=== PATIENT | male | born 1975 | race Caucasian/White ===

== ENCOUNTER 2020-03-30 16:26 | Emergency (ER) | payer BC, MEDICAID ==
[2020-03-30 16:42] VITALS: BP 132/77; PULSE 80
[2020-03-30] MEDS ORDERED: Lactated Ringers 1,000 ML IV ONE (16:43)
--- NOTE | 2020-03-30 16:56 | EDM.PDOC ---
ED HPI GENERAL MEDICAL PROBLEM - General Chief Complaint: Gastrointestinal Problem Stated Complaint: DIZZY/NAUSEA Time Seen by Provider: 03/30/20 16:56 Source of Information: Reports: Patient, RN, RN Notes Reviewed History Limitations: Reports: No Limitations - History of Present Illness INITIAL COMMENTS - FREE TEXT/NARRATIVE: Patient presents to ER with complaint of bilateral shoulder pain, weakness, lethargy, nausea and vomiting. Patient states he was at work this morning and approximately 9:00 he began feeling as if he was overheated, very weak and lethargic. Patient did vomit twice this morning. Went home from work and has been resting since then. Patient states he feels he is possibly dehydrated. States he continued to have the bilateral shoulder pain while at home trying to rest. Patient states the shoulder pain has improved since he has been in the ER. Denies any pain at this time. Patient states nausea has also improved. Patient states he never did have any chest pains. Denies any health history, or taking any medications on a regular basis. Onset: Today, Sudden Bilateral Shoulder Pain Score (Numeric/FACES): 6 - Related Data Allergies Allergy/AdvReac Type Severity Reaction Status Date / Time No Known Allergies Allergy Verified 03/30/20 16:36 Home Meds: Home Meds . [No Known Home Meds] 10/19/16 [History] Past Medical History - Past Health History Medical/Surgical History: Denies Medical/Surgical History - Infectious Disease History Infectious Disease History: Reports: None - Past Surgical History Musculoskeletal Surgical History: Reports: Other (See Below) Social & Family History - Family History Family Medical History: Noncontributory - Caffeine Use Caffeine Use: Reports: Coffee ED ROS GENERAL - Review of Systems Review Of Systems: Comprehensive ROS is negative, except as noted in HPI. ED EXAM, GENERAL - Physical Exam Exam: See Below Exam Limited By: No Limitations General Appearance: Alert, WD/WN, No Apparent Distress Eye Exam: Bilateral Eye: EOMI, Normal Inspection Ears: Normal External Exam, Hearing Grossly Normal Nose: Normal Inspection Throat/Mouth: Normal Inspection, Normal Voice, No Airway Compromise Head: Atraumatic, Normocephalic Neck: Normal Inspection, Supple, Non-Tender, Full Range of Motion Respiratory/Chest: No Respiratory Distress, Lungs Clear, Normal Breath Sounds, No Accessory Muscle Use, Chest Non-Tender Cardiovascular: Normal Peripheral Pulses, Regular Rate, Rhythm, No Edema, No Gallop, No JVD, No Murmur, No Rub Peripheral Pulses: 2+: Radial (L), Radial (R) GI/Abdominal: Normal Bowel Sounds, Soft, Non-Tender (Male) Exam: Deferred Rectal (Males) Exam: Deferred Back Exam: Normal Inspection, Full Range of Motion, NT Extremities: Normal Inspection, Normal Range of Motion, No Pedal Edema, Normal Capillary Refill, Other (bilateral shoulder pain, radiates to back/shoulder blades) Neurological: Alert, Oriented, CN II-XII Intact, Normal Cognition, Normal Gait, Normal Reflexes, No Motor/Sensory Deficits Psychiatric: Normal Affect, Normal Mood Skin Exam: Warm, Dry, Intact, Normal Color, No Rash Lymphatic: No Adenopathy Course - Vital Signs Last Recorded V/S: Last Vital Signs Temp 96.8 F L 03/30/20 16:40 Pulse 80 03/30/20 16:40 Resp 18 03/30/20 16:40 BP 132/77 03/30/20 16:40 Pulse Ox 97 03/30/20 16:40 - Orders/Labs/Meds Orders: Active Orders 24 hr Category Date Time Status EKG Documentation Completion [RC] STAT Care 03/30/20 16:42 Active Heparin Sodium/0.45% NaCl [Heparin 25,000 Units in 1/2 Med 03/30/20 17:45 Active NS 500 ML] 25,000 units in 500 ml IV TITRATE Medication Orders Heparin Sodium/Sodium Chloride (Heparin 25,000 Units In 1/2 Ns 500 Ml) 25,000 units in 500 mls @ 14.065 mls/hr IV TITRATE SHERRI; Protocol Labs: Laboratory Tests 03/30/20 03/30/20 03/30/20 Range/Units 16:43 16:43 16:43 WBC 15.8 H (5.0-10.0) 10^3/uL RBC 4.92 (4.6-6.2) 10^6/uL Hgb 15.2 (14.0-18.0) g/dL Hct 43.7 (40.0-54.0) % MCV 88.8 (80-100) fL MCH 30.9 (27.0-34.0) pg MCHC 34.8 (33.0-35.0) g/dL Plt Count 238 (150-450) 10^3/uL Neut % (Auto) 83.5 H (42.2-75.2) % Lymph % (Auto) 10.9 L (20.5-50.1) % [place] % (Auto) 5.2 (2-8) % Eos % (Auto) 0.1 L (1.0-3.0) % Baso % (Auto) 0.3 (0.0-1.0) % PT (9.0-12.0) SEC INR (0.9-1.2) Sodium 139 (136-145) mmol/L Potassium 3.9 (3.5-5.1) mmol/L Chloride 101 (98-107) mmol/L Carbon Dioxide 27 (21-32) mmol/L Anion Gap 14.9 H (7-13) mEq/L BUN 6 L (7-18) mg/dL Creatinine 0.83 (0.70-1.30) mg/dL Est Cr Clr Drug Dosing 92.18 mL/min Estimated GFR (MDRD) > 60 BUN/Creatinine Ratio 7.2 (No establ ref range) Glucose 114 H (74-99) mg/dL Calcium 9.3 (8.5-10.1) mg/dL Total Bilirubin 0.6 (0.2-1.0) mg/dL AST 45 H (15-37) U/L ALT 26 (16-63) U/L Alkaline Phosphatase 79 (46-116) U/L Troponin I 2.978 H* (0.000-0.056) ng/mL Total Protein 7.1 (6.4-8.2) g/dL Albumin 4.3 (3.4-5.0) g/dL Globulin 2.8 Albumin/Globulin Ratio 1.5 Amylase 41 (25-115) U/L Lipase 153 (73-393) U/L /24/20 Range/Units 16:43 WBC (5.0-10.0) 10^3/uL RBC (4.6-6.2) 10^6/uL Hgb (14.0-18.0) g/dL Hct (40.0-54.0) % MCV (80-100) fL MCH (27.0-34.0) pg MCHC (33.0-35.0) g/dL Plt Count (150-450) 10^3/uL Neut % (Auto) (42.2-75.2) % Lymph % (Auto) (20.5-50.1) % [place] % (Auto) (2-8) % Eos % (Auto) (1.0-3.0) % Baso % (Auto) (0.0-1.0) % PT 10.8 (9.0-12.0) SEC INR 1.1 (0.9-1.2) Sodium (136-145) mmol/L Potassium (3.5-5.1) mmol/L Chloride (98-107) mmol/L Carbon Dioxide (21-32) mmol/L Anion Gap (7-13) mEq/L BUN (7-18) mg/dL Creatinine (0.70-1.30) mg/dL Est Cr Clr Drug Dosing mL/min Estimated GFR (MDRD) BUN/Creatinine Ratio (No establ ref range) Glucose (74-99) mg/dL Calcium (8.5-10.1) mg/dL Total Bilirubin (0.2-1.0) mg/dL AST (15-37) U/L ALT (16-63) U/L Alkaline Phosphatase (46-116) U/L Troponin I (0.000-0.056) ng/mL Total Protein (6.4-8.2) g/dL Albumin (3.4-5.0) g/dL Globulin Albumin/Globulin Ratio Amylase (25-115) U/L Lipase (73-393) U/L Meds: Medications Generic Name Dose Route Start Last Admin Trade Name Misbah PRN Reason Stop Dose Admin Heparin Sodium/Sodium Chloride 25,000 units in 500 mls @ 14.065 mls/hr 03/30/20 17:45 Heparin 25,000 Units In 1/2 Ns 500 Ml IV TITRATE SHERRI Protocol 12 UNITS/KG/HR Discontinued Medications Generic Name Dose Route Start Last Admin Trade Name Misbah PRN Reason Stop Dose Admin Aspirin 324 mg 03/30/20 17:36 03/30/20 17:45 Aspirin PO 03/30/20 17:37 324 mg ONETIME ONE Administration Heparin Sodium (Porcine) 4,000 units 03/30/20 17:34 03/30/20 17:50 Heparin Sodium IVPUSH 03/30/20 17:35 4,000 units .BOLUS ONE Administration Lactated Ringer's 1,000 mls @ 999 mls/hr 03/30/20 16:43 03/30/20 16:48 Ringers, Lactated IV 03/30/20 17:43 999 mls/hr .BOLUS ONE Administration Tenecteplase Confirm 03/30/20 17:59 03/30/20 18:01 Tnkase Administered 03/30/20 18:00 50 mg Dose Administration 50 mg .ROUTE .STK-MED ONE Tenecteplase 50 mg 03/30/20 18:08 Tnkase IV 03/30/20 18:09 ONETIME ONE Protocol - Re-Assessments/Exams Free Text/Narrative Re-Assessment/Exam: 03/30/20 18:20 Patient case discussed with Dr. Lundberg who states he would like TnKase given and the patient to be transferred to [facility] in [place]. Departure - Departure Time of Disposition: 18:22 Disposition: DC/Tfer to Acute Hospital 02 Reason for Transfer *Q: Other Condition: Serious Clinical Impression: STEMI (ST elevation myocardial infarction) Qualifiers: Involved coronary artery: other inferior wall coronary artery Qualified Code(s): I21.19 - ST elevation (STEMI) myocardial infarction involving other coronary artery of inferior wall Referrals: PCP,Unobtain [Primary Care Provider] - Forms: ED Department Discharge, Interfacility Transfer [facility] Sepsis Event Note (ED) - Evaluation Sepsis Screening Result: No Definite Risk - Focused Exam Vital Signs: Vital Signs Temp Pulse Resp BP Pulse Ox 03/30/20 16:40 96.8 F L 80 18 132/77 97 - My Orders Last 24 Hours: My Active Orders 03/30/20 16:42 EKG Documentation Completion [RC] STAT 03/30/20 17:45 Heparin Sodium/0.45% NaCl [Heparin 25,000 Units in 1/2 NS 500 ML] 25,000 units in 500 ml IV TITRATE - Assessment/Plan Last 24 Hours: My Active Orders 03/30/20 16:42 EKG Documentation Completion [RC] STAT 03/30/20 17:45 Heparin Sodium/0.45% NaCl [Heparin 25,000 Units in 1/2 NS 500 ML] 25,000 units in 500 ml IV TITRATE
--- NOTE | 2020-03-30 17:00 | CR ---
PROCEDURE INFORMATION: Exam: XR Chest, 1 View Exam date and time: 03/30/2020 4:53 PM Age: 44 years old Clinical indication: Other: Chest pain TECHNIQUE: Imaging protocol: XR of the chest Views: 1 view. COMPARISON: No relevant prior studies available. FINDINGS: Lungs: Unremarkable. No consolidation. Pleural space: Unremarkable. No pleural effusion. No pneumothorax. Heart/Mediastinum: Unremarkable. No cardiomegaly. Bones/joints: Unremarkable. IMPRESSION: No acute findings.
[2020-03-30 17:20] LABS: ANION GAP 14.9 mEq/L (7-13); CHLORIDE,CL 101 mmol/L (98-107); SODIUM,NA 139 mmol/L (136-145)
[2020-03-30] MEDS ORDERED: Heparin Sodium 5,000 Units/ML Vial IVPUSH ONE (17:34)
[2020-03-30] MEDS ORDERED: Aspirin 81 MG Tab.Chew PO ONE (17:36)
[2020-03-30] MEDS ORDERED: Heparin Sodium/0.45% NaCl 25,000 UNITS/500 ML BAG IV SCH (17:45)
[2020-03-30] MEDS ORDERED: Tenecteplase 50 MG Kit ONE (17:59)
[2020-03-30] MEDS ORDERED: Tenecteplase 50 MG Kit IV ONE (18:08)
== END 2020-03-30 18:10 ==
LOC: DL.ED 16:26
DX: I21.19 ST elevation (STEMI) myocardial infarction involving other coronary artery of inferior wall (principal)
CPT/HCPCS: 36415; 71045; 80053; 82150; 83690; 84484; 85025; 85610; 93005; 96361; 96374; 96375; 96376; 99285; A9270; J1644; J3101; J7120; 99284

== ENCOUNTER 2021-02-03 09:17 | Emergency (ER) | payer BC ==
[2021-02-03 09:34] VITALS: BP 146/91; PULSE 85
--- NOTE | 2021-02-03 09:54 | EDM.PDOC ---
"ED HPI GENERAL MEDICAL PROBLEM - General Chief Complaint: General Stated Complaint: [id number] SPITTING UP BLOOD PAST FEW DAYS Time Seen by Provider: 02/03/21 09:53 Source of Information: Reports: Patient, Old Records, RN, RN Notes Reviewed History Limitations: Reports: No Limitations - History of Present Illness INITIAL COMMENTS - FREE TEXT/NARRATIVE: Pt presents to ER from home by POV with c/o 3 days duration of hemoptysis. Pt denies shortness of breath, wheezing, chest pain, sore throat, sinus pain/drainage, or epistaxis. Admits to a mild cough. Pt is a smoker of about 1PPD since his teenage years. Denies any significant unexplained wt loss. Onset: Gradual Duration: Day(s): (3) Location: Reports: Chest Quality: Reports: Other (Denies pain) Severity: Mild Improves with: Reports: None Worsens with: Reports: Other (Coughing) - Related Data Allergies Allergy/AdvReac Type Severity Reaction Status Date / Time No Known Allergies Allergy Verified 02/03/21 09:34 Home Meds: Home Meds Aspirin [Aspirin EC] 81 mg PO DAILY 04/25/20 [History] Clopidogrel Bisulfate [Plavix] 75 mg PO DAILY 04/25/20 [History] Metoprolol Tartrate 37.5 mg PO BID 04/25/20 [History] Nitroglycerin 0.4 mg SL ASDIRECTED 04/25/20 [History] atorvaSTATin [Lipitor] 80 mg PO BEDTIME 04/25/20 [History] Past Medical History - Past Health History Medical/Surgical History: Denies Medical/Surgical History HEENT History: Reports: Impaired Vision Other HEENT History: Wears glasses Cardiovascular History: Reports: CAD, Congenital Septal Defect, Heart Failure, [place], PTCA, Stents Respiratory History: Reports: None Gastrointestinal History: Reports: None Genitourinary History: Reports: None Musculoskeletal History: Reports: None Neurological History: Reports: None Psychiatric History: Reports: None Endocrine/Metabolic History: Reports: None Hematologic History: Reports: None Immunologic History: Reports: None Oncologic (Cancer) History: Reports: None Dermatologic History: Reports: None - Infectious Disease History Infectious Disease History: Reports: None - Past Surgical History Head Surgeries/Procedures: Reports: None Cardiovascular Surgical History: Reports: Coronary Artery Stent, Other (See Below) (PDA repair) Musculoskeletal Surgical History: Reports: Other (See Below) Other Musculoskeletal Surgeries/Procedures:: Left partial medial meniscectomy/shaving of articular cartilage Social & Family History - Family History Family Medical History: No Pertinent Family History - Tobacco Use Tobacco Use Status *Q: Current Every Day Tobacco User Tobacco Use Within Last Twelve Months: Cigarettes Years of Tobacco use: 31 Packs/Tins Daily: 0.5 Second Hand Smoke Exposure: No - Caffeine Use Caffeine Use: Reports: Coffee - Recreational Drug Use Recreational Drug Type: Reports: Marijuana/Hashish - Living Situation & Occupation Living situation: Reports: with Family ED ROS GENERAL - Review of Systems Review Of Systems: Comprehensive ROS is negative, except as noted in HPI. ED EXAM, GENERAL - Physical Exam Exam: See Below Exam Limited By: No Limitations General Appearance: Alert, WD/WN, No Apparent Distress Nose: Normal Inspection, Normal Mucosa, No Blood Throat/Mouth: Normal Lips, Normal Oropharynx, Normal Voice, No Airway Compromise Head: Atraumatic, Normocephalic Neck: Normal Inspection, Non-Tender, Full Range of Motion. No: Lymphadenopathy (L), Lymphadenopathy (R) Respiratory/Chest: No Respiratory Distress, Lungs Clear, Normal Breath Sounds, No Accessory Muscle Use, Chest Non-Tender. No: Crackles, Rales, Rhonchi, Wheezing Cardiovascular: Regular Rate, Rhythm, No Edema GI/Abdominal: Normal Bowel Sounds, Soft, Non-Tender, No Organomegaly, No Mass Back Exam: Normal Inspection Extremities: Normal Inspection, Normal Range of Motion, Non-Tender, Normal Capillary Refill, No Pedal Edema Neurological: Alert, Oriented, CN II-XII Intact, Normal Cognition, Normal Gait, No Motor/Sensory Deficits Psychiatric: Normal Mood Skin Exam: Warm, Dry, Intact, Normal Color, No Rash. No: Ecchymosis, Jaundice, Petechiae Course - Vital Signs Last Recorded V/S: Last Vital Signs Temp 97.7 F 02/03/21 09:29 Pulse 85 02/03/21 09:29 Resp 16 02/03/21 09:29 BP 146/91 H 02/03/21 09:29 Pulse Ox 99 02/03/21 09:29 - Orders/Labs/Meds Orders: Active Orders 24 hr Category Date Time Status Peripheral IV Care [RC] . DIRECTED Care 02/03/21 10:10 Active Sodium Chloride 0.9% [Saline Flush] Med 02/03/21 10:10 Active 10 ml FLUSH ASDIRECTED PRN Peripheral IV Insertion Pediatric [OM.PC] Stat Oth 02/03/21 10:10 Ordered Medication Orders Sodium Chloride (Sodium Chloride 0.9% 10 Ml Syringe) 10 ml FLUSH ASDIRECTED PRN PRN Reason: Keep Vein Open Last Admin: 02/03/21 10:46 Dose: 10 ml Documented by: IMANI Labs: Laboratory Tests 02/03/21 02/03/21 02/03/21 Range/Units 09:53 09:53 09:53 WBC 8.4 (5.0-10.0) 10^3/uL RBC 5.22 (4.6-6.2) 10^6/uL Hgb 15.5 (14.0-18.0) g/dL Hct 46.4 (40.0-54.0) % MCV 88.9 (80-100) fL MCH 29.7 (27.0-34.0) pg MCHC 33.4 (33.0-35.0) g/dL Plt Count 270 (150-450) 10^3/uL Neut % (Auto) 53.2 (42.2-75.2) % Lymph % (Auto) 33.8 (20.5-50.1) % [place] % (Auto) 9.3 H (2-8) % Eos % (Auto) 2.9 (1.0-3.0) % Baso % (Auto) 0.8 (0.0-1.0) % PT (9.0-12.0) SEC INR (0.9-1.2) APTT (22.0-34.0) SEC D-Dimer, Quantitative < 100 (0-400) ng/mL Sodium 142 (136-145) mmol/L Potassium 4.4 (3.5-5.1) mmol/L Chloride 102 (98-107) mmol/L Carbon Dioxide 29 (21-32) mmol/L Anion Gap 15.4 H (7-13) mEq/L BUN 7 (7-18) mg/dL Creatinine 0.80 (0.70-1.30) mg/dL Est Cr Clr Drug Dosing 93.16 mL/min Estimated GFR (MDRD) > 60 BUN/Creatinine Ratio 8.8 (No establ ref range) Glucose 90 (70-99) mg/dL Calcium 9.0 (8.5-10.1) mg/dL Total Bilirubin 0.5 (0.2-1.0) mg/dL AST 13 L (15-37) U/L ALT 24 (16-63) U/L Alkaline Phosphatase 116 (46-116) U/L Lactate Dehydrogenase 145 (85-227) U/L Total Protein 7.4 (6.4-8.2) g/dL Albumin 4.0 (3.4-5.0) g/dL Globulin 3.4 Albumin/Globulin Ratio 1.2 02/03/21 Range/Units 09:53 WBC (5.0-10.0) 10^3/uL RBC (4.6-6.2) 10^6/uL Hgb (14.0-18.0) g/dL Hct (40.0-54.0) % MCV (80-100) fL MCH (27.0-34.0) pg MCHC (33.0-35.0) g/dL Plt Count (150-450) 10^3/uL Neut % (Auto) (42.2-75.2) % Lymph % (Auto) (20.5-50.1) % [place] % (Auto) (2-8) % Eos % (Auto) (1.0-3.0) % Baso % (Auto) (0.0-1.0) % PT 11.8 (9.0-12.0) SEC INR 1.2 (0.9-1.2) APTT 25.3 (22.0-34.0) SEC D-Dimer, Quantitative (0-400) ng/mL Sodium (136-145) mmol/L Potassium (3.5-5.1) mmol/L Chloride (98-107) mmol/L Carbon Dioxide (21-32) mmol/L Anion Gap (7-13) mEq/L BUN (7-18) mg/dL Creatinine (0.70-1.30) mg/dL Est Cr Clr Drug Dosing mL/min Estimated GFR (MDRD) BUN/Creatinine Ratio (No establ ref range) Glucose (70-99) mg/dL Calcium (8.5-10.1) mg/dL Total Bilirubin (0.2-1.0) mg/dL AST (15-37) U/L ALT (16-63) U/L Alkaline Phosphatase (46-116) U/L Lactate Dehydrogenase (85-227) U/L Total Protein (6.4-8.2) g/dL Albumin (3.4-5.0) g/dL Globulin Albumin/Globulin Ratio Meds: Medications Generic Name Dose Route Start Last Admin Trade Name Freq PRN Reason Stop Dose Admin Sodium Chloride 10 ml 02/03/21 10:10 02/03/21 10:46 Sodium Chloride 0.9% 10 Ml Syringe FLUSH 10 ml ASDIRECTED PRN Administration Keep Vein Open Discontinued Medications Generic Name Dose Route Start Last Admin Trade Name Freq PRN Reason Stop Dose Admin Iopamidol 100 ml 02/03/21 10:44 Iopamidol 612 Mg/Ml 100 Ml Bottle IVPUSH 02/03/21 10:45 ONETIME ONE - Radiology Interpretation Free Text/Narrative:: [facility] Final Radiology Report Call: [phone] assistance Online chat: [email or web address] Name: NESSA JOYCE Age: 45Years M Date: 02/03/2021 SSN: -- : [id number] Study: CT CHEST W CONT Requesting Physician: SAVITA ROMANO Images: [id number] Addl Studies: Provided 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 Radiation optimization: All CT scans at this facility use at least one of these dose optimization techniques: automated exposure control; mA and/or kV adjustment per patient size (includes targeted exams where dose is matched to clinical indication); or iterative reconstruction. Contrast material: ISOVUE 300; Contrast volume: 75 ml; Contrast route: INTRAVENOUS (IV); COMPARISON: No relevant prior studies available. FINDINGS: Lungs: Changes of emphysema. Patchy diffuse areas subtle ground-glass attenuation throughout both lungs in the pattern suggestive respiratory bronchiolitis. Pleural spaces: Unremarkable. No pneumothorax. No pleural effusion. Heart: Atrial appendage closure device. Vascular calcifications including coronary artery calcifications.. No cardiomegaly. No pericardial effusion. Aorta: Unremarkable. No aortic aneurysm. Lymph nodes: Unremarkable. No enlarged lymph nodes. Bones/joints: Sternotomy. Degenerative arthritis in the spine minimal osteophyte formation. The bones are demineralized and there is mild anterior wedging of couple of midthoracic vertebral bodies. No worrisome bone lesions. No acute fracture. Soft tissues: Unremarkable. NESSA JOYCE | Final Radiology Report CONFIDENTIALITY STATEMENT This report is intended only for use by the referring physician, and only in accordance with law. If you received this in error, call [phone]. Page 2 of 2 IMPRESSION: Changes of emphysema and findings suggesting respiratory bronchiolitis. No consolidation or mass. Thank you for allowing us to participate in the care of your patient. Dictated and Authenticated by: Amira Chance MD 02/03/2021 11:49 AM Central Time ([place] & [place]) - Re-Assessments/Exams Free Text/Narrative Re-Assessment/Exam: 02/03/21 12:05 Pt hemodynamically stable, not anemic, no chest pain, minimal cough, afebrile, and small amounts of blood with hemoptysis. Contrast Chest CT shows no mass or other lesions. Pt is a smoker and likely needs a bronchoscopy. However, he is stable and can have further evaluation as an outpatient in the coming week. I will d/c pt home today with instructions to return to the ER if he has increased hemoptysis, or if any new or concerning symptoms develop. I asked him to f/u in clinic Thursday (Thursday is a holiday) for recheck and referral to pulmonology. Departure - Departure Time of Disposition: 12:09 Disposition: Home, Self-Care 01 Condition: Good, Undetermined Clinical Impression: Hemoptysis - Discharge Information *PRESCRIPTION DRUG MONITORING PROGRAM REVIEWED*: Not Applicable *COPY OF PRESCRIPTION DRUG MONITORING REPORT IN PATIENT NINA: Not Applicable Instructions: Hemoptysis, [id number] Forms: ED Department Discharge Additional Instructions: Follow up at [facility] February 05 for ER recheck and referral to pulmonology for further evaluation and bronchoscopy if needed. Return to ER if worse at any time, or if any new or concerning symptoms develop. Sepsis Event Note (ED) - Evaluation Sepsis Screening Result: No Definite Risk - Focused Exam Vital Signs: Vital Signs Temp Pulse Resp BP Pulse Ox 02/03/21 09:29 97.7 F 85 16 146/91 H 99 - My Orders Last 24 Hours: My Active Orders 02/03/21 10:10 Peripheral IV Care [RC] . DIRECTED Sodium Chloride 0.9% [Saline Flush] 10 ml FLUSH ASDIRECTED PRN Peripheral IV Insertion Pediatric [OM.PC] Stat - Assessment/Plan Last 24 Hours: My Active Orders 02/03/21 10:10 Peripheral IV Care [RC] . DIRECTED Sodium Chloride 0.9% [Saline Flush] 10 ml FLUSH ASDIRECTED PRN Peripheral IV Insertion Pediatric [OM.PC] Stat"
[2021-02-03] MEDS ORDERED: Sodium Chloride 0.9% 10 ML Syringe FLUSH PRN (10:10)
[2021-02-03 10:37] LABS: ANION GAP 15.4 mEq/L (7-13); CHLORIDE,CL 102 mmol/L (98-107); SODIUM,NA 142 mmol/L (136-145)
[2021-02-03 10:38] LABS: PTT,PARTIAL THROMBOPLSTIN TIME 25.3 SEC (22.0-34.0)
[2021-02-03] MEDS ORDERED: Iopamidol 612 MG/ML 100 ML Bottle IVPUSH ONE (10:44)
--- NOTE | 2021-02-03 11:49 | CT ---
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 Radiation optimization: All CT scans at this facility use at least one of these dose optimization techniques: automated exposure control; mA and/or kV adjustment per patient size (includes targeted exams where dose is matched to clinical indication); or iterative reconstruction. Contrast material: ISOVUE 300; Contrast volume: 75 ml; Contrast route: INTRAVENOUS (IV); COMPARISON: No relevant prior studies available. FINDINGS: Lungs: Changes of emphysema. Patchy diffuse areas subtle ground-glass attenuation throughout both lungs in the pattern suggestive respiratory bronchiolitis. Pleural spaces: Unremarkable. No pneumothorax. No pleural effusion. Heart: Atrial appendage closure device. Vascular calcifications including coronary artery calcifications.. No cardiomegaly. No pericardial effusion. Aorta: Unremarkable. No aortic aneurysm. Lymph nodes: Unremarkable. No enlarged lymph nodes. Bones/joints: Sternotomy. Degenerative arthritis in the spine minimal osteophyte formation. The bones are demineralized and there is mild anterior wedging of couple of midthoracic vertebral bodies. No worrisome bone lesions. No acute fracture. Soft tissues: Unremarkable. IMPRESSION: Changes of emphysema and findings suggesting respiratory bronchiolitis. No consolidation or mass.
== END 2021-02-03 12:51 | disposition home or self-care (01) ==
LOC: DL.ED 09:17
DX: R04.2 Hemoptysis (principal); I25.10 Atherosclerotic heart disease of native coronary artery without angina pectoris; I50.9 Heart failure, unspecified; I25.2 Old myocardial infarction; Z95.5 Presence of coronary angioplasty implant and graft; Z72.0 Tobacco use
CPT/HCPCS: 36415; 71260; 80053; 83615; 85025; 85379; 85610; 85730; 99285; Q9967; 99284

== ENCOUNTER 2022-12-15 20:20 | Emergency (ER) | payer BC ==
[2022-12-15 20:48] VITALS: BP 135/85; PULSE 72
[2022-12-15 21:32] LABS: ANION GAP 12.7 mEq/L (7-13); PTT,PARTIAL THROMBOPLSTIN TIME 27.4 SEC (22.0-34.0)
[2022-12-15] MEDS ORDERED: GI Cocktail Oral Solution 30 ML PO ONE (21:34)
[2022-12-15] MEDS ORDERED: Famotidine 20 MG/2 ML SDV IVPUSH ONE (21:34)
[2022-12-15] MEDS ORDERED: Polyethylene Glycol 3350 Powder 17 GM Packet PO ONE (22:18)
== END 2022-12-15 22:27 | disposition home or self-care (01) ==
LOC: DL.ED 20:20
DX: K59.01 Slow transit constipation (principal); I25.10 Atherosclerotic heart disease of native coronary artery without angina pectoris; Z79.82 Long term (current) use of aspirin; Z79.02 Long term (current) use of antithrombotics/antiplatelets; Z79.899 Other long term (current) drug therapy; Z86.16 Personal history of COVID-19; Z72.0 Tobacco use
CPT/HCPCS: 36415; 71045; 74019; 80053; 82150; 83605; 83690; 83735; 83880; 84484; 85025; 85610; 85730; 86140; 93005; 99284; A9270; J3490

== ENCOUNTER 2024-04-02 21:26 | Emergency (ER) | payer BC ==
[2024-04-03 00:52] VITALS: BP 173/102; PULSE 75
[2024-04-03 00:57] LABS: BASOPHILS PERCENT AUTO 0.3 % (0.0-1.0); EOSINOPHILS PERCENT AUTO 0.6 % (1.0-3.0); HEMATOCRIT 38.8 % (40.0-54.0); HEMOGLOBIN 13.4 g/dL (14.0-18.0); LYMPHOCYTES PERCENT AUTO 21.4 % (20.5-50.1); MEAN CORPUSCULAR HEMOGLOBIN 30.9 pg (27.0-34.0); MEAN CORPUSCULAR HGB CONC 34.5 g/dL (33.0-35.0); MEAN CORPUSCULAR VOLUME 89.4 fL (80-100); MONOCYTES PERCENT AUTO 10.2 % (2-8); NEUTROPHILS PERCENT AUTO 67.5 % (42.2-75.2); PLATELET COUNT,PLT 188 10^3/uL (150-450); RED BLOOD CELL COUNT 4.34 10^6/uL (4.6-6.2); WHITE BLOOD CELL COUNT,WBC 11.6 10^3/uL (5.0-10.0)
[2024-04-03] MEDS: Aspirin 81 MG Tab.Chew PO ONE (01:10)
[2024-04-03] MEDS: Sodium Chloride 0.9% 10 ML Syringe FLUSH PRN (01:10)
[2024-04-03] MEDS ORDERED: Naloxone 2 MG/2 ML Syringe IVPUSH PRN ×2 (01:24→05:22)
[2024-04-03 01:25] LABS: A/G RATIO 1.4; ALBUMIN 3.9 g/dL (3.4-5.0); ANION GAP 13.6 mEq/L (7-13); BILIRUBIN TOTAL 0.5 mg/dL (0.2-1.0); BUN/CREATININE RATIO 5.8 (No establ ref range); CALCIUM 9.3 mg/dL (8.5-10.1); CREATININE 0.86 mg/dL (0.70-1.30); EST CRCL DRUG DOSING (CG) 82.15 mL/min; MAGNESIUM 1.6 mg/dL (1.8-2.4); POTASSIUM,K 3.6 mmol/L (3.5-5.1); PROTEIN TOTAL,TP 6.7 g/dL (6.4-8.2)
[2024-04-03 01:26] LABS: D-DIMER QUANTITATIVE < 100 ng/mL (0-400)
[2024-04-03 01:31] LABS: PROTHROMBIN TIME 10.8 SEC (9.0-12.0); PTT,PARTIAL THROMBOPLSTIN TIME 25.5 SEC (22.0-34.0)
[2024-04-03] MEDS: Nitroglycerin 2% Oint 1 GM UD Packet TOP ONE (01:34)
[2024-04-03] MEDS: Morphine 2 MG/ML SYRINGE IVPUSH ONE ×3 (01:34→13:23)
[2024-04-03] MEDS: Magnesium Sulfate/Water 2 GM in Premix Bag 1 BAG IV ONE (01:35)
[2024-04-03] MEDS: Iopamidol 755 Mg/ML 100 ML Bottle IV ONE (02:42)
[2024-04-03] MEDS: Sodium Chloride 0.9% 1,000 ML IV ONE (06:35)
[2024-04-03 07:53] LABS: AMPHETAMINES,URINE NEGATIVE (NEGATIVE); BARBITURATES,URINE NEGATIVE (NEGATIVE); BENZODIAZEPINE,URINE NEGATIVE (NEGATIVE); MDMA (ECSTASY), URINE NEGATIVE (NEGATIVE); METHADONE,URINE NEGATIVE (NEGATIVE); METHAMPHETAMINES,URINE NEGATIVE (NEGATIVE); OPIATES,URINE POSITIVE (NEGATIVE); OXYCODONE,URINE NEGATIVE (NEGATIVE); PHENCYCLIDINE,URINE NEGATIVE (NEGATIVE); TCA,URINE NEGATIVE (NEGATIVE)
== END 2024-04-03 14:23 ==
LOC: DL.ED 21:26
DX: R07.9 Chest pain, unspecified (principal); I10 Essential (primary) hypertension; I25.2 Old myocardial infarction; Z86.16 Personal history of COVID-19; Z95.5 Presence of coronary angioplasty implant and graft; Z87.891 Personal history of nicotine dependence; Z79.82 Long term (current) use of aspirin; Z79.899 Other long term (current) drug therapy; Z79.02 Long term (current) use of antithrombotics/antiplatelets
CPT/HCPCS: 36415; 70498; 71046; 71275; 80053; 80305; 83690; 83735; 83880; 84484; 85025; 85379; 85610; 85730; 87635; 87804; 93005; 96361; 96365; 96366; 96375; 96376; 99285; A9270; J2270; J3475; J7030; Q9967; 93010; 99284; J3490; U0002

== ENCOUNTER 2024-10-18 14:09 | Emergency (ER) | payer BC ==
[2024-10-18] MEDS: Acetaminophen 325 MG Tab PO ONE (15:03)
[2024-10-18 15:07] VITALS: BP 135/86; PULSE 75
== END 2024-10-18 16:23 | disposition home or self-care (01) ==
LOC: DL.ED 14:09
DX: S22.32XA Fracture of one rib, left side, initial encounter for closed fracture (principal); I10 Essential (primary) hypertension; I25.2 Old myocardial infarction; F17.210 Nicotine dependence, cigarettes, uncomplicated; Z86.16 Personal history of COVID-19; Z96.659 Presence of unspecified artificial knee joint; Z79.82 Long term (current) use of aspirin; Z79.899 Other long term (current) drug therapy; W00.0XXA Fall on same level due to ice and snow, initial encounter
CPT/HCPCS: 71250; 99283; A9270; 99284